=== PATIENT | male | born 1940 | race African-American/Black ===

== ENCOUNTER 2019-05-29 18:38 | Inpatient (IN) | payer MEDICARE, BC ==
[~2019-05-29] VITALS: Ht 193 cm; Wt 106.1 kg
--- NOTE | 2019-05-29 18:46 | NUR ---
erick, from [facility], s/p unwitness fall while reaching his phone, PMD want's ct head and laura hip x-ray, pt to bed 12, pt awake, alert, -sob, nad noted, vss, pending md de jesus
[2019-05-29] MEDS ORDERED: IV NS 0.9% 1,000 ML BAG IV ONE ×2 (19:00→20:00)
[2019-05-29 19:06] LABS: BASOPHILS # (AUTO) 0.1 /CMM (0.0-0.2); EOSINOPHILS % (AUTO) 0.4 % (0.0-6.0); HEMATOCRIT 44 % (39-51); HEMOGLOBIN 13.7 g/dL (13.5-17.5); LYMPHOCYTES # (AUTO) 1.2 /CMM (0.8-4.8); LYMPHOCYTES % (AUTO) 18.1 % (20.0-44.0); MEAN CORPUSCULAR HGB CONC 32 g/dl (31.0-36.0); MEAN CORPUSCULAR VOLUME 78 fL (80-96); MONOCYTES # (AUTO) 0.7 /CMM (0.1-1.30); MONOCYTES % (AUTO) 9.9 % (2.0-12.0); NEUTROPHILS # (AUTO) 4.8 /CMM (1.8-8.9); NEUTROPHILS % (AUTO) 70.6 % (43.0-81.0); PLATELET COUNT (AUTO) 419 /CMM (150-450); RED BLOOD CELL COUNT(AUTO) 5.56 MIL/uL (4.5-6.0); WHITE BLOOD COUNT (AUTO) 6.8 K/uL (4.3-11.0)
[2019-05-29 19:14] LABS: CALCIUM, SERUM 9.3 mg/dL (8.5-10.1); CARBON DIOXIDE 34 mmol/L (21-32); CHLORIDE 98 mmol/L (98-107); CREATININE 1.4 mg/dL (0.6-1.3); GLUCOSE 147 mg/dL (74-106); POTASSIUM 3.7 mmol/L (3.5-5.1); SODIUM SERUM 137 mmol/L (136-145); UREA NITROGEN, BLOOD 30 mg/dL (7-18)
[2019-05-29 19:24] LABS: ALANINE AMINOTRANSFERASE 43 U/L (12-78); ALBUMIN 3.2 g/dL (3.4-5.0); ALKALINE PHOSPHATASE 97 U/L (46-116); ASPARTATE AMINOTRANSFERASE 33 U/L (15-37); BILIRUBIN,DIRECT 0.2 mg/dL (0.0-0.2); BILIRUBIN,TOTAL 0.6 mg/dL (0.2-1.0); TOTAL PROTEIN, SERUM 6.7 g/dL (6.4-8.2)
--- NOTE | 2019-05-29 20:16 | NUR ---
CALLED FOR TELE BED
[2019-05-29] MEDS ORDERED: BUPR2TAB3 SL ×2 (20:24)
[2019-05-29] MEDS ORDERED: ALBU2.5V38 IH (20:24)
[2019-05-29] MEDS ORDERED: CHLO25TA2 PO (20:24)
[2019-05-29] MEDS ORDERED: ATOR10TA PO (20:24)
[2019-05-29] MEDS ORDERED: FERR325T23 PO (20:24)
[2019-05-29] MEDS ORDERED: ERGO500014 PO (20:24)
[2019-05-29] MEDS ORDERED: FLUT16SP BNOSTRILS (20:24)
[2019-05-29] MEDS ORDERED: AMLO10TA7 PO (20:24)
[2019-05-29] MEDS ORDERED: ACET325T53 PO (20:24)
[2019-05-29] MEDS ORDERED: ACET-73 PO (20:24)
[2019-05-29] MEDS ORDERED: CARV3.122 PO (20:24)
[2019-05-29] MEDS ORDERED: APIX5TAB PO (20:24)
[2019-05-29] MEDS ORDERED: LOSA100T31 PO (20:33)
[2019-05-29] MEDS ORDERED: TAMS-12 PO (20:33)
[2019-05-29] MEDS ORDERED: TRAZ-182 PO (20:33)
[2019-05-29] MEDS ORDERED: POLY119P2 PO (20:33)
[2019-05-29] MEDS ORDERED: INSU100V42 SQ (20:33)
[2019-05-29] MEDS ORDERED: MELA3CAP2 PO (20:33)
[2019-05-29] MEDS ORDERED: PREG150C46 PO (20:33)
--- NOTE | 2019-05-29 21:32 | NUR ---
pt transported to 3rd floor
--- NOTE | 2019-05-29 21:40 | NUR ---
SHOT PEEN OPERATOR NOTES PATIENT ARRIVED ON FLOOR 213. PATIENT IS VERY DROWSY. AROUSED BY TOUCH. UNABLE TO ASSESS HISTORY. PATIENT IS BREATHING EVEN AND UNLABORED ON 2L NC. SHOWS NO SIGNS OF ACUTE RESPIRATORY DISTRESS, NO ACUTE PAIN. IV ON RAC 20G IS CLEAN DRY AND INTACT. SHOWS NO SIGNS OF INFILTRATION NO REDNESS. 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 BELONGINGS CHECKLIST COMPLETED, SKIN ASSESSMENT COMPLETED. SAFETY PRECAUTIONS IN PLACE. BED IN LOWEST POSITION, LOCKED, AND CALL LIGHT KEPT WITHIN REACH. WILL CONTINUE TO MONITOR.
[2019-05-29 22:00] VITALS: BP 112/84
[2019-05-30] VITALS (7 sets, daily range): BP systolic 96–128; BP diastolic 54–84
[2019-05-30] MEDS ORDERED: ZOLPIDEM TARTRATE 5 MG TABLET PO PRN (00:30)
[2019-05-30] MEDS ORDERED: DEXTROSE 50%-WATER 50 ML DISP.SYRIN IV PRN (00:30)
[2019-05-30] MEDS ORDERED: MAGNESIUM HYDROXIDE 30 ML UDC PO PRN (00:30)
[2019-05-30] MEDS ORDERED: MAG HYDROX/AL HYDROX/SIMETH 30 ML UDC PO PRN (00:30)
[2019-05-30] MEDS ORDERED: ONDANSETRON HCL/PF 4 MG/2 ML VIAL IVP PRN (00:30)
[2019-05-30] MEDS ORDERED: Z GUARD REMEDY 2 OZ OINT TP PRN (00:30)
[2019-05-30] MEDS: BLOOD SUGAR DIAGNOSTIC 1 EACH STRIP IN SCH ×4 (06:31→22:07)
--- NOTE | 2019-05-30 06:50 | NUR ---
COMPACT ASSEMBLER NOTES PATIENT IS VERY SLEEPY. AROUSED BY TOUCH. UNABLE TO ASSESS HISTORY. PATIENT IS BREATHING EVEN AND UNLABORED ON 2L NC ALERT AND ORIENTED X 1-2 . SHOWS NO SIGNS OF ACUTE RESPIRATORY DISTRESS, NO ACUTE PAIN. IV ON RAC 20G IS CLEAN DRY AND INTACT. SHOWS NO SIGNS OF INFILTRATION NO REDNESS. 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 ALL DUE MEDICATIONS GIVEN SAFETY PRECAUTIONS IN PLACE. BED IN LOWEST POSITION, LOCKED, AND CALL LIGHT KEPT WITHIN REACH. WILL ENDORSE TO ONCOMING NURSE.
[2019-05-30] MEDS ORDERED: IV NS 0.9% 1,000 ML IV PRN ×2 (07:26→11:30)
[2019-05-30] MEDS: ALBUTEROL FS 2.5 MG/3 ML VIAL.NEB IH SCH ×3 (07:35→20:14)
--- NOTE | 2019-05-30 07:44 | NUR ---
VOLCANOLOGIST OPENING NOTES RECEIVED PATIENT IN BED, ASLEEP. PATIENT IS BREATHING EVEN AND UNLABORED ON 2L NC. SHOWS NO SIGNS OF ACUTE RESPIRATORY DISTRESS, NO ACUTE PAIN. IV ON RAC 20G IS CLEAN DRY AND INTACT. SHOWS NO SIGNS OF INFILTRATION NO REDNESS. 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 SAFETY PRECAUTIONS IN PLACE; BED IN LOW POSITION AND LOCKED, RAILS UP X2, CALL LIGHT WITHIN REACH. WILL CONTINUE TO MONITOR PATIENT.
[2019-05-30 08:12] LABS: BASOPHILS # (AUTO) 0.1 /CMM (0.0-0.2); BASOPHILS % (AUTO) 1.4 % (0.0-2.0); EOSINOPHILS % (AUTO) 0.1 % (0.0-6.0); HEMATOCRIT 45 % (39-51); HEMOGLOBIN 14.2 g/dL (13.5-17.5); LYMPHOCYTES # (AUTO) 1.4 /CMM (0.8-4.8); LYMPHOCYTES % (AUTO) 25.7 % (20.0-44.0); MEAN CORPUSCULAR HGB CONC 31 g/dl (31.0-36.0); MEAN CORPUSCULAR VOLUME 78 fL (80-96); MONOCYTES # (AUTO) 0.6 /CMM (0.1-1.30); MONOCYTES % (AUTO) 11.7 % (2.0-12.0); NEUTROPHILS # (AUTO) 3.2 /CMM (1.8-8.9); NEUTROPHILS % (AUTO) 61.1 % (43.0-81.0); PLATELET COUNT (AUTO) 379 /CMM (150-450); RED BLOOD CELL COUNT(AUTO) 5.81 MIL/uL (4.5-6.0); WHITE BLOOD COUNT (AUTO) 5.3 K/uL (4.3-11.0)
[2019-05-30 08:17] LABS: MAGNESIUM 1.7 mg/dL (1.8-2.4); PHOSPHORUS 3.9 mg/dL (2.5-4.9)
[2019-05-30] MEDS ORDERED: CARVEDILOL 3.125 MG TABLET PO SCH (09:00)
[2019-05-30] MEDS ORDERED: BUPRENORPHINE HCL 2 MG TAB.SUBL SL SCH ×2 (09:00)
[2019-05-30] MEDS ORDERED: Medication Not On Formulary EA (Chlorthalidone 25 MG) PO SCH (09:00)
[2019-05-30] MEDS ORDERED: Medication Not On Formulary EA (Melatonin 3 MG) PO SCH (09:00)
[2019-05-30] MEDS: APIXABAN 5 MG TABLET PO SCH ×2 (09:49→20:47)
[2019-05-30] MEDS: FLUTICASONE PROPIONATE 16 GM BOTTLE NS SCH (09:49)
[2019-05-30] MEDS: LOSARTAN POTASSIUM 50 MG TABLET PO SCH (09:50)
[2019-05-30] MEDS: FERROUS SULFATE (325 MG) 325 MG/TAB TABLET PO SCH (09:50)
[2019-05-30] MEDS: AMLODIPINE BESYLATE 10 MG TABLET PO SCH (09:51)
[2019-05-30] MEDS: PREGABALIN 25 MG CAPSULE PO SCH ×3 (09:51→17:16)
--- NOTE | 2019-05-30 11:51 | NUR ---
TRUCKING SUPERVISOR NOTES CALLED PATIENT'S FACILITY TO ASK ABOUT MEDICATION BUPRENORPHINE HCL PER PHARMACY REQUEST. FACILITY SAID THEY ARE OUT OF THE MEDICATION AND DO NOT HAVE A NEW SUPPLY. WHEN ASKED WHO SUPPLIES THE MEDICATION THEY TOOK SOME TIME ANSWERING THEN SAID PATIENT'S FAMILY. PATIENT SAYS HE HAS MINIMUM CONTACT WITH THE FAMILY AND THAT HE IS NOT AWARE WHERE DOES THE MEDICATION COME FROM OR WHO SUPPLIES IT. WE DO NOT HAVE ANY FAMILY NAME ON FILE. PHARMACY MADE AWARE AND MD NOTIFIED. MD SAID HE WILL GET IN CONTACT WITH HIS PRIMARY AND FIND OUT WHAT IS GOING ON.
[2019-05-30] MEDS: INSULIN REGULAR, HUMAN 100 UNIT/ML 3 ML VIAL SQ PRN ×2 (12:19→18:08)
--- NOTE | 2019-05-30 12:19 | NUR ---
ENROLLMENT COORDINATOR NOTES BS 123. NO COVERAGE GIVEN PER MD SLIDING SCALE.
[2019-05-30] MEDS: Magnesium 1GM/D5W 100ML PREMIX 100 ML IV SCH ×2 (14:43→16:05)
--- NOTE | 2019-05-30 15:59 | NUR ---
MEDICINE ASSISTANT NOTES RECEIVED A CALL FROM RADIOLOGY REGARDING PATIENT'S US CAROTID RESULTS. SOME ARE CRITICAL. MD SADLER NOTIFIED. WILL FOLLOW UP.
[2019-05-30] MEDS: METHADONE HCL 10 MG TABLET PO SCH ×2 (16:07→20:48)
--- NOTE | 2019-05-30 18:54 | NUR ---
FOOD SERVICE SPECIALIST CLOSING NOTES PATIENT IN BED, AWAKE, A/O X2. PATIENT WITH AHKEEM ANCA AT THE SITE. PATIENT IS BREATHING EVEN AND UNLABORED ON 2L NC. SHOWS NO SIGNS OF ACUTE RESPIRATORY DISTRESS, NO ACUTE PAIN. IV ON RAC 20G IS CLEAN DRY AND INTACT INFUSING NS AT 100 MLS/HR. SHOWS NO SIGNS OF INFILTRATION NO REDNESS. TELE MONITOR IS SR WITH 2ND DEGREE TYPE 1 WITH HR OF 70S AT THIS MOMENT. ALL NEEDS ATTENDED TOO. SAFETY PRECAUTIONS REMAIN IN PLACE; BED IN LOW POSITION AND LOCKED, RAILS UP X2, CALL LIGHT WITHIN REACH. WILL ENDORSE TO MEND WORKER NURSE.
--- NOTE | 2019-05-30 19:45 | NUR ---
TELE/RN OPENING NOTES RECEIVED PATIENT IN BED, AWAKE, ALERT X2, SITTING IN THE BED WITH FAMILY , ON OXYGEN VIA NC AT 2 LITER, SKIN WARM TO TOUCH, BED LOCKED, CALL LIGHTS WITHIN REACH, IV FLUID REPLACED INFUSING AT 100 NL/HR. DISCUSSED PLAN OF CARE AND WOULD LIKE TO HAVE MD CONTACT FAMILY AND DISCUSS WITH CM FOR TRANSFER OF FACILITY.BED LOCKED. CALL LIGHTS WITHIN REACH, WILL MONITOR, RECEIVED ENDORESEMENT FROM AM RN FOR ALEXEI.
--- NOTE | 2019-05-30 19:52 | NUR ---
TELE/RN NOTES' SR WITH PVC AND BBB.
--- NOTE | 2019-05-30 22:00 | NUR ---
BLOOD SUGAR AT 133 COVERAGE NOT GIVEN, REFUSED AT THIS TIME.
[2019-05-30] MEDS: TAMSULOSIN 0.4 MG CAP.SR.24H PO SCH (22:06)
[2019-05-30] MEDS: ATORVASTATIN 10 MG TABLET PO SCH (22:07)
[2019-05-30] MEDS: TRAZODONE 50 MG TABLET PO SCH (22:07)
[2019-05-31] VITALS: BP 102/56
[2019-05-31 00:48] VITALS: BP 102/56
[2019-05-31] MEDS: ALBUTEROL FS 2.5 MG/3 ML VIAL.NEB IH SCH ×4 (01:18→19:43)
[2019-05-31 04:00] VITALS: BP 131/92
--- NOTE | 2019-05-31 06:49 | NUR ---
[id number]/RN CLOSING NOTES PATIENT ABLE TO SLEEP DURING THE NIGHTS, ON OXYGEN VIA NC AT 2LITER FOR COMFORT MEASURES. SKIN WARM TO TOUCH, BED LOCKED, CALL LIGHTS WIHTIN REACH. MONITORED FOR ANY CHANGES.
[2019-05-31 06:57] LABS: BASOPHILS # (AUTO) 0.1 /CMM (0.0-0.2); BASOPHILS % (AUTO) 1.4 % (0.0-2.0); EOSINOPHILS % (AUTO) 0.4 % (0.0-6.0); HEMATOCRIT 43 % (39-51); HEMOGLOBIN 13.6 g/dL (13.5-17.5); LYMPHOCYTES # (AUTO) 1.3 /CMM (0.8-4.8); LYMPHOCYTES % (AUTO) 29.1 % (20.0-44.0); MEAN CORPUSCULAR HGB CONC 32 g/dl (31.0-36.0); MEAN CORPUSCULAR VOLUME 78 fL (80-96); MONOCYTES # (AUTO) 0.5 /CMM (0.1-1.30); MONOCYTES % (AUTO) 11.2 % (2.0-12.0); NEUTROPHILS # (AUTO) 2.5 /CMM (1.8-8.9); NEUTROPHILS % (AUTO) 57.9 % (43.0-81.0); PLATELET COUNT (AUTO) 338 /CMM (150-450); WHITE BLOOD COUNT (AUTO) 4.4 K/uL (4.3-11.0)
[2019-05-31] MEDS: BLOOD SUGAR DIAGNOSTIC 1 EACH STRIP IN SCH ×4 (07:04→20:37)
--- NOTE | 2019-05-31 07:15 | NUR ---
RN OPENING NOTES RECEIVED PATIENT IN STABLE CONDITION. A/OX2-3, ABLE TO MAKE NEEDS KNOWN. EPISODES OF FORGETFULNESS. NOT IN ANY FORM OF DISTRESS. NO SOB. DENIED PAIN OR DISCOMFORT AT THIS TIME. IV ACCESS INTACT AND PATENT. KEPT PATIENT SAFE AND COMFORTABLE. BED IN LOW/LOCKED POSITION. SIDERAILS UPX2, CALL LIGHT IN REACH. WILL CONT TO MONITOR ACCORDINGLY.
[2019-05-31 08:00] VITALS: BP 123/72
[2019-05-31 08:24] LABS: ALANINE AMINOTRANSFERASE 35 U/L (12-78); ALBUMIN 3.2 g/dL (3.4-5.0); ALKALINE PHOSPHATASE 90 U/L (46-116); ASPARTATE AMINOTRANSFERASE 31 U/L (15-37); BILIRUBIN,TOTAL 0.4 mg/dL (0.2-1.0); CALCIUM, SERUM 9.3 mg/dL (8.5-10.1); CARBON DIOXIDE 30 mmol/L (21-32); CHLORIDE 101 mmol/L (98-107); CREATININE 0.8 mg/dL (0.6-1.3); GLUCOSE 101 mg/dL (74-106); PHOSPHORUS 3.8 mg/dL (2.5-4.9); POTASSIUM 4.3 mmol/L (3.5-5.1); SODIUM SERUM 136 mmol/L (136-145); TOTAL PROTEIN, SERUM 6.7 g/dL (6.4-8.2); UREA NITROGEN, BLOOD 21 mg/dL (7-18)
[2019-05-31] MEDS: PREGABALIN 25 MG CAPSULE PO SCH ×3 (08:47→16:15)
[2019-05-31] MEDS: FLUTICASONE PROPIONATE 16 GM BOTTLE NS SCH (08:47)
[2019-05-31] MEDS: APIXABAN 5 MG TABLET PO SCH ×2 (08:49→20:41)
[2019-05-31] MEDS: METHADONE HCL 10 MG TABLET PO SCH ×2 (08:51→16:15)
[2019-05-31] MEDS: AMLODIPINE BESYLATE 10 MG TABLET PO SCH (08:52)
[2019-05-31] MEDS: LOSARTAN POTASSIUM 50 MG TABLET PO SCH (08:53)
[2019-05-31] MEDS: FERROUS SULFATE (325 MG) 325 MG/TAB TABLET PO SCH (08:53)
[2019-05-31 11:15] LABS: CHOLESTEROL 156 mg/dL (<200); HDL CHOLESTEROL 45 mg/dL (40-60); LDL 87 mg/dL (0-99); TRIGLYCERIDES 129 mg/dL (30-150)
[2019-05-31 16:00] VITALS: BP 123/68
--- NOTE | 2019-05-31 19:36 | NUR ---
RN CLOSING NOTES PATIENT IN STABLE CONDITION. ALL DUE MEDS GIVEN ORDERED. ASSISTED PATIENT WITH ADLS. KEPT PATIENT SKIN CLEAN AND DRY. BED IN LOW/LOCKED POSITION, SIDERAILS UPX2, CALL LIGHT IN REACH. ENDORSED ACCORDINGLY
--- NOTE | 2019-05-31 19:45 | NUR ---
MS/RN OPENING NOTES RECEIVED PATIENT IN BED, AWAKE, ALERT X2, ABLE TO VERBALIZE NEEDS AND RECOGNIZE NURSE, SKIN WARM TO TOUCH, RESPIRATIONS EVEN AND UNLABORED.BED LOCKED CALL LIGHTS WITHIN REACH, RECEIVED ENDORSEMENT FROM AM RN FOR ALEXEI. DENIES PAIN WILL MONITOR,
[2019-05-31 20:00] VITALS: BP 106/69
[2019-05-31] MEDS: INSULIN REGULAR, HUMAN 100 UNIT/ML 3 ML VIAL SQ PRN (20:45)
[2019-05-31] MEDS: ATORVASTATIN 10 MG TABLET PO SCH (22:07)
[2019-05-31] MEDS: TRAZODONE 50 MG TABLET PO SCH (22:07)
[2019-05-31] MEDS: TAMSULOSIN 0.4 MG CAP.SR.24H PO SCH (22:07)
[2019-06-01] MEDS: ALBUTEROL FS 2.5 MG/3 ML VIAL.NEB IH SCH ×4 (00:54→20:29)
[2019-06-01] MEDS: BLOOD SUGAR DIAGNOSTIC 1 EACH STRIP IN SCH ×4 (06:00→21:10)
[2019-06-01 06:54] LABS: BASOPHILS # (AUTO) 0.1 /CMM (0.0-0.2); BASOPHILS % (AUTO) 2.1 % (0.0-2.0); EOSINOPHILS % (AUTO) 0.3 % (0.0-6.0); HEMATOCRIT 41 % (39-51); HEMOGLOBIN 12.7 g/dL (13.5-17.5); LYMPHOCYTES # (AUTO) 1.2 /CMM (0.8-4.8); LYMPHOCYTES % (AUTO) 33.2 % (20.0-44.0); MEAN CORPUSCULAR HGB CONC 31 g/dl (31.0-36.0); MEAN CORPUSCULAR VOLUME 78 fL (80-96); MONOCYTES # (AUTO) 0.5 /CMM (0.1-1.30); MONOCYTES % (AUTO) 13.2 % (2.0-12.0); NEUTROPHILS # (AUTO) 1.9 /CMM (1.8-8.9); NEUTROPHILS % (AUTO) 51.2 % (43.0-81.0); PLATELET COUNT (AUTO) 361 /CMM (150-450); RED BLOOD CELL COUNT(AUTO) 5.24 MIL/uL (4.5-6.0); WHITE BLOOD COUNT (AUTO) 3.7 K/uL (4.3-11.0)
[2019-06-01 07:00] LABS: CALCIUM, SERUM 8.8 mg/dL (8.5-10.1); CREATININE 0.7 mg/dL (0.6-1.3); POTASSIUM 4.2 mmol/L (3.5-5.1)
--- NOTE | 2019-06-01 07:00 | NUR ---
MS/RN CLOSING NOTES ENDORSED TO AM RN FOR ALEXEI.
--- NOTE | 2019-06-01 07:49 | NUR ---
MS RN OPENING NOTES PATIENT IN BED RESTING COMFORTABLY. PATIENT IN NO ACUTE DISTRESS. NO SOB NOTED. PATIENT BREATHING IS EVEN AND UNLABORED. PATIENT BREATHING ON OXYGEN 2L NC SATURATING >95% SPO2. IV PATENT AND INTACT. PATIENT SAFETY PRECAUTIONS IN PLACE. PATIENT BED IS LOCKED AND IN LOWEST POSITION. CALL LIGHT WITHIN REACH. WILL CONTINUE TO MONITOR.
[2019-06-01 08:00] VITALS: BP 120/74
[2019-06-01] MEDS: LOSARTAN POTASSIUM 50 MG TABLET PO SCH (08:33)
[2019-06-01] MEDS: FERROUS SULFATE (325 MG) 325 MG/TAB TABLET PO SCH (08:33)
[2019-06-01] MEDS: PREGABALIN 25 MG CAPSULE PO SCH ×3 (08:33→16:53)
[2019-06-01] MEDS: AMLODIPINE BESYLATE 10 MG TABLET PO SCH (08:34)
[2019-06-01] MEDS: METHADONE HCL 10 MG TABLET PO SCH ×2 (08:34→16:52)
[2019-06-01] MEDS: FLUTICASONE PROPIONATE 16 GM BOTTLE NS SCH (08:35)
[2019-06-01] MEDS: APIXABAN 5 MG TABLET PO SCH ×2 (08:36→21:08)
[2019-06-01 11:29] VITALS: BP_SYST 138; BP_SYST 139; BP_SYST 141; BP_DIAS 79; BP_DIAS 81; BP_DIAS 82
--- NOTE | 2019-06-01 11:31 | NUR ---
MS RN NOTE NAVID ECHEVERRIA NOTIFIED OF PATIENTS ORTHOSTATIC BP TESTS.
--- NOTE | 2019-06-01 11:48 | NUR ---
MS RN NOTE PATIENT BLOOD SUGAR IS 115. NO INSULIN COVERAGE GIVEN PER PROTOCOL.
[2019-06-01] MEDS ORDERED: CT SWABBABLE VALVE TRANS SET 1 EA INFUS.SET MC ONE ×2 (14:34→15:42)
[2019-06-01] MEDS ORDERED: IV NS 0.9% 250 ML IV ONE ×2 (14:34→15:42)
[2019-06-01] MEDS ORDERED: IOHEXOL-350 100 ML VIAL IV ONE ×2 (14:34→15:42)
[2019-06-01 16:00] VITALS: BP 105/60
--- NOTE | 2019-06-01 16:46 | NUR ---
MS RN NOTE PATIENT BLOOD SUGAR IS 100. NO INSULIN COVERAGE NEEDED PER PROTOCOL.
--- NOTE | 2019-06-01 17:56 | NUR ---
MS RN NOTE PER BOILER TUBE REAMER NOELLE. WILL MANAGER HOME PATIENT SOON FOR CTA BRAIN AND CAROTID.
--- NOTE | 2019-06-01 19:00 | NUR ---
MS RN CLOSING NOTE PATIENT IN BED RESTING COMFORTABLY. PATIENT IN NO ACUTE DISTRESS. NO SOB NOTED. PATIENT BREATHING IS EVEN AND UNLABORED. PATIENT NEEDS AND CONCERNS ADDRESSED. IV PATENT AND INTACT. PATIENT TOLERATED CTA TEST WELL. PATIENT KEPT CLEAN, DRY AND COMFORTABLE THROUGHOUT SHIFT. SAFETY PRECAUTIONS IN PLACE. PATIENT BED IS LOCKED AND IN LOWEST POSITION. CALL LIGHT WITHIN REACH. WILL ENDORSE CARE TO PM SHIFT FOR ALEXEI.
--- NOTE | 2019-06-01 19:15 | NUR ---
MS RN OPENING NOTES Received patient awaken on high Mario's position on bed. On O2, no respiratory distress noted at this time. Patient denies any discomfort at this time. On fall and aspiration precautions. Will continue to monitor accordingly.
[2019-06-01 20:49] VITALS: BP 91/59
[2019-06-01] MEDS: ATORVASTATIN 10 MG TABLET PO SCH (21:08)
[2019-06-01] MEDS: TRAZODONE 50 MG TABLET PO SCH (21:08)
[2019-06-01] MEDS: TAMSULOSIN 0.4 MG CAP.SR.24H PO SCH (21:08)
[2019-06-01] MEDS: INSULIN REGULAR, HUMAN 100 UNIT/ML 3 ML VIAL SQ PRN (21:17)
--- NOTE | 2019-06-01 21:17 | NUR ---
MS RN NOTES Patient refused Insulin despite education given. Will continue to monitor accordingly.
[2019-06-01] MEDS: ACETAMINOPHEN 325 MG TABLET PO PRN (22:42)
[2019-06-02] MEDS: ALBUTEROL FS 2.5 MG/3 ML VIAL.NEB IH SCH ×4 (01:51→20:31)
[2019-06-02 06:39] LABS: BASOPHILS # (AUTO) 0.1 /CMM (0.0-0.2); BASOPHILS % (AUTO) 1.1 % (0.0-2.0); EOSINOPHILS % (AUTO) 0.1 % (0.0-6.0); HEMATOCRIT 41 % (39-51); HEMOGLOBIN 12.7 g/dL (13.5-17.5); LYMPHOCYTES % (AUTO) 18.2 % (20.0-44.0); MEAN CORPUSCULAR HGB CONC 31 g/dl (31.0-36.0); MEAN CORPUSCULAR VOLUME 79 fL (80-96); MONOCYTES # (AUTO) 0.8 /CMM (0.1-1.30); MONOCYTES % (AUTO) 14.6 % (2.0-12.0); NEUTROPHILS # (AUTO) 3.7 /CMM (1.8-8.9); PLATELET COUNT (AUTO) 338 /CMM (150-450); RED BLOOD CELL COUNT(AUTO) 5.19 MIL/uL (4.5-6.0); WHITE BLOOD COUNT (AUTO) 5.6 K/uL (4.3-11.0)
--- NOTE | 2019-06-02 06:44 | NUR ---
MS RN CLOSING NOTES Patient on bed, easily awaken. No new complaints made. All nursing needs attended. Due meds given as ordered, no ASE noted. Kept on bed clean, dry and comfortable. On fall and aspiration precautions. Call light within easy reach. Endorsed.
[2019-06-02 06:51] LABS: CALCIUM, SERUM 8.7 mg/dL (8.5-10.1); MAGNESIUM 1.7 mg/dL (1.8-2.4); PHOSPHORUS 4.2 mg/dL (2.5-4.9); POTASSIUM 4.6 mmol/L (3.5-5.1)
[2019-06-02] MEDS: BLOOD SUGAR DIAGNOSTIC 1 EACH STRIP IN SCH ×4 (07:33→23:03)
--- NOTE | 2019-06-02 07:39 | NUR ---
MS RN OPENING NOTES PATIENT IN BED RESTING COMFORTABLY. PATIENT IN NO ACUTE DISTRESS. NO SOB NOTED. PATIENT BREATHING IS EVEN AND UNLABORED. PATIENT BREATHING ON OXYGEN 2L NC SATURATING >95% SPO2. BED ALARM IS ON. IV PATENT AND INTACT. PATIENT SAFETY PRECAUTIONS IN PLACE. PATIENT BED IS LOCKED AND IN LOWEST POSITION. CALL LIGHT WITHIN REACH. WILL CONTINUE TO MONITOR.
[2019-06-02] MEDS: FLUTICASONE PROPIONATE 16 GM BOTTLE NS SCH (08:36)
[2019-06-02] MEDS: LOSARTAN POTASSIUM 50 MG TABLET PO SCH (08:37)
[2019-06-02] MEDS: APIXABAN 5 MG TABLET PO SCH ×2 (08:38→22:56)
[2019-06-02] MEDS: FERROUS SULFATE (325 MG) 325 MG/TAB TABLET PO SCH (08:39)
[2019-06-02] MEDS: AMLODIPINE BESYLATE 10 MG TABLET PO SCH (08:39)
[2019-06-02] MEDS: METHADONE HCL 10 MG TABLET PO SCH ×2 (08:40→16:53)
[2019-06-02] MEDS: PREGABALIN 25 MG CAPSULE PO SCH ×3 (08:40→16:53)
[2019-06-02 09:00] VITALS: BP 117/79
--- NOTE | 2019-06-02 11:47 | NUR ---
MS RN NOTE PATIENT BLOOD SUGAR IS 98. NO INSULIN COVERAGE GIVEN, PER PROTOCOL.
[2019-06-02] MEDS: Magnesium 1GM/D5W 100ML PREMIX 100 ML IV SCH ×2 (11:50→12:50)
[2019-06-02 16:00] VITALS: BP 101/67
--- NOTE | 2019-06-02 16:48 | NUR ---
MS RN NOTE PATIENT BLOOD SUGAR IS 85. NO INSULIN COVERAGE NEEDED PER PROTOCOL.
--- NOTE | 2019-06-02 19:45 | NUR ---
MS RN OPENING NOTES PATIENT AWAKE IN BED UPON ARRIVAL. A/OX1-2. ON 3L NC. NO S/S OF ACUTE RESPIRATORY DISTRESS AND NO COMPLAINTS OF PAIN AT THIS TIME. IV PRESENT ON RIGHT AC, SIZE 20, INTACT & PATENT, HEP LOCKED. PATIENT AWAITING DISCHARGE TO [facility]. DISCHARGE INSTRUCTIONS COMPLETED AND REPORT GIVEN TO SNF BY DAY SHIFT NURSE. SAFETY MEASURES IN PLACE. BED LOCKED, ALARM ON, SIDE RAILS X2, CALL LIGHT WITHIN REACH. WILL CONTINUE TO MONITOR.
--- NOTE | 2019-06-02 19:53 | NUR ---
MS RN CLOSING NOTE PATIENT IN BED RESTING COMFORTABLY. PATIENT IN NO ACUTE DISTRESS. NO SOB NOTED. PATIENT BREATHING IS EVEN AND UNLABORED. DC INSTRUCTIONS PROVIDED. PATIENT VERBALIZED UNDERSTANDING. INFORMED NEPHEW ANCA OF PATIENT DISCHARGE TONIGHT AT 2100 TO [facility]. REPORT GIVEN TO ELHAM LEARY AT [facility]. PATIENT IV INTACT, ID BAND IN PLACE. ENDORSED FOR IV REMOVAL BEFORE DISCHARGE. PATIENT SIGNED BELONGINGS LIST AND HAS BELONGINGS WITH HIM AT THIS TIME. PATIENT SKIN ASSESSED, NO NEW SKIN BREAKDOWN NOTED. PATIENT KEPT CLEAN, DRY AND COMFORTABLE THROUGHOUT SHIFT. PATIENT BED ALARM IS ON. PATIENT BED IS LOCKED AND IN LOWEST POSITION CALL LIGHT WITHIN REACH. MD AWARE OF DISCHARGE. WILL ENDORSE TO NIGHT FOR DISCHARGE AND ALEXEI.
[2019-06-02 20:00] VITALS: BP_SYST 123; BP_DIAS 63; BP_DIAS 65
--- NOTE | 2019-06-02 21:50 | NUR ---
MS RN NOTES EMT ARRIVED ON UNIT AT 2140 TO TRANSFER PATIENT TO [facility]; HOWEVER, PATIENT REFUSES TO LEAVE UNIT. PATIENT STATED THAT HE WAS NOT AWARE THAT HE WAS BEING PLACED AT [facility] AND WANTS TO GO HOME. FAMILY CONTACTED AND MADE AWARE.
--- NOTE | 2019-06-02 22:29 | NUR ---
MS RN NOTES LINH WEISS NOTIFIED TO HOLD PATIENT'S BED FOR WILL CALL
[2019-06-02] MEDS: TRAZODONE 50 MG TABLET PO SCH (22:56)
[2019-06-02] MEDS: ATORVASTATIN 10 MG TABLET PO SCH (22:56)
[2019-06-02] MEDS: TAMSULOSIN 0.4 MG CAP.SR.24H PO SCH (22:56)
[2019-06-02] MEDS: ACETAMINOPHEN 325 MG TABLET PO PRN (23:03)
[2019-06-03] MEDS: ALBUTEROL FS 2.5 MG/3 ML VIAL.NEB IH SCH ×3 (02:00→13:00)
[2019-06-03] MEDS: BLOOD SUGAR DIAGNOSTIC 1 EACH STRIP IN SCH ×2 (07:05→12:11)
--- NOTE | 2019-06-03 07:25 | NUR ---
MS RN CLOSING NOTES PATIENT SLEEPING IN BED, EASY TO AWAKEN. A/O X-3. ON ROOM AIR. NO S/S OF SOB OR COMPLAINT OF PAIN. SAFETY MEASURES IN PLACE. BED LOCKED, ALARM ON, SIDE RAILS X2, CALL LIGHT WITHIN REACH. WILL ENDORSE TO DAY SHIFT NURSE TO FOLLOW PLAN OF CARE.
--- NOTE | 2019-06-03 07:41 | NUR ---
rn opening notes Patient received on 3L nasal cannula, no sob noted, patient asleep at this time on his bed. Regular diet, with no need for insulin coverage at this time. Bed at the lowest setting, call light within reach, side rails up x2.
[2019-06-03] MEDS: APIXABAN 5 MG TABLET PO SCH (08:38)
[2019-06-03] MEDS: PREGABALIN 25 MG CAPSULE PO SCH ×2 (08:39→12:13)
[2019-06-03] MEDS: FERROUS SULFATE (325 MG) 325 MG/TAB TABLET PO SCH (08:39)
[2019-06-03] MEDS: METHADONE HCL 10 MG TABLET PO SCH (08:39)
[2019-06-03 08:44] VITALS: BP 139/85
[2019-06-03] MEDS: AMLODIPINE BESYLATE 10 MG TABLET PO SCH (08:44)
[2019-06-03] MEDS: FLUTICASONE PROPIONATE 16 GM BOTTLE NS SCH (08:44)
[2019-06-03] MEDS: LOSARTAN POTASSIUM 50 MG TABLET PO SCH (08:44)
--- NOTE | 2019-06-03 14:29 | NUR ---
rn d/c notes Patient discharged at this time. no sob noted, vital signs stable, denies pain at this time. No IV lines at this time, all identification removed. patient has all belong with him. Paperwork given to EMT that will be transporting him. photos refused by patient to be taken at this time.
[2019-06-03 14:59] LABS: CREATININE 0.9 mg/dL (0.6-1.3); MAGNESIUM 1.8 mg/dL (1.8-2.4); POTASSIUM 4.6 mmol/L (3.5-5.1)
[2019-06-04] MEDS ORDERED: ERGOCALCIFEROL (VITAMIN D 2) 50,000 UNIT CAPSULE PO SCH (09:00)
== END 2019-06-03 14:35 | DRG 67 ==
LOC: ER 18:38 → TELE 20:39 → MED 05-31 08:57
PROVIDERS: ADMIT Internal Medicine; ATTEND Nurse Practitioner Acute Care
DX: I65.23 Occlusion and stenosis of bilateral carotid arteries (principal); N17.0 Acute kidney failure with tubular necrosis; G93.49 Other encephalopathy; E78.5 Hyperlipidemia, unspecified; I25.10 Atherosclerotic heart disease of native coronary artery without angina pectoris; J44.9 Chronic obstructive pulmonary disease, unspecified; G89.4 Chronic pain syndrome; I10 Essential (primary) hypertension; I48.0 Paroxysmal atrial fibrillation; Z86.718 Personal history of other venous thrombosis and embolism; Z86.711 Personal history of pulmonary embolism; Z85.46 Personal history of malignant neoplasm of prostate; Z79.01 Long term (current) use of anticoagulants; N40.0 Benign prostatic hyperplasia without lower urinary tract symptoms; E11.40 Type 2 diabetes mellitus with diabetic neuropathy, unspecified; Z79.891 Long term (current) use of opiate analgesic; E86.9 Volume depletion, unspecified; T39.395A Adverse effect of other nonsteroidal anti-inflammatory drugs [NSAID], initial encounter; Y92.129 Unspecified place in nursing home as the place of occurrence of the external cause; Z79.4 Long term (current) use of insulin; I65.03 Occlusion and stenosis of bilateral vertebral arteries; E86.0 Dehydration; R40.2423 Glasgow coma scale score 9-12, at hospital admission
CPT/HCPCS: 36415; 70450-TC; 70496-TC; 70498-TC; 71045-TC; 72170-TC; 76770-TC; 80048-TC; 80053-TC; 80061-TC; 80076-TC; 82962-TC; 83735-TC; 84100-TC; 84484-TC; 85025-TC; 87081-TC; 93307-TC; 93880-TC; 94799-TC; 97112-TC; 97530-TC; G0378; J1815; J3475; J7030; J7050; Q9967